=== PATIENT | male | born 1940 | race Caucasian/White ===

== ENCOUNTER 2017-10-12 21:04 | Emergency (ER) | payer OTHER ==
[2017-10-12 21:11] VITALS: BP 150/90
--- NOTE | 2017-10-12 21:27 | EDPHY ---
H & P Time Seen by Provider: 10/12/17 21:25 HPI/ROS: Chief complaint. Bit tongue and it will not stop bleeding HPI. 77-year-old male on Plavix and aspirin bit his tongue 2 hr ago. It will not stop bleeding. Continues to ooze. No difficulty swallowing or breathing. No other complaints. No chest pain shortness of breath abdominal pain. ROS Constitutional. no fever/chills, no weakness Eyes. no problems with vision ENT. Tongue bite with continued bleeding Cardiovascular. no chest pain Respiratory. no shortness of breath, no cough Abdominal. no abdominal pain, no nausea/vomiting, no diarrhea . no problems urinating MS. no calf pain/swelling, no neck/back pain, no joint pain Skin. no rash Lymph. no swollen glands Neuro. no headache, no dizziness, no difficulty walking or with speech Past Medical/Surgical History: Cardiac stents with coronary artery disease, prostatectomy Social History: , nonsmoker, no alcohol Smoking Status: Never smoked Physical Exam: General Appearance: Alert pleasant well-developed male mild distress vital signs are stay Eyes: Pupils equal and round no pallor or injection. ENT, bite to the tip of the tongue. Continue is oozing. No significant laceration that needs closure Respiratory: There are no retractions, lungs are clear to auscultation. Cardiovascular: Regular rate and rhythm. Gastrointestinal: Abdomen is soft and nontender, no masses, bowel sounds normal. Neurological: Awake and alert, sensory and motor exams grossly normal. Skin: Warm and dry, no rashes. Musculoskeletal: Neck is supple nontender. Extremities symmetrical, full range of motion. Psychiatric: Patient is oriented X 3, there is no agitation. Constitutional: Initial Vital Signs Temperature (C) 37.2 C 10/12/17 21:09 Heart Rate 88 10/12/17 21:09 Respiratory Rate 16 10/12/17 21:09 Blood Pressure 150/90 H 10/12/17 21:09 O2 Sat (%) 92 10/12/17 21:09 O2 Delivery Mode Room Air Allergies/Adverse Reactions: No Known Allergies Allergy (Verified 10/12/17 21:09) Home Medications: Medication Instructions Recorded Aspirin [Aspirin 81mg (*)] 81 mg PO DAILY 06/13/14 Clopidogrel Bisulfate [Clopidogrel] 75 mg PO DAILY 06/13/14 Metoprolol Tartrate [Lopressor 50 50 mg PO DAILY 06/13/14 mg (*)] Simvastatin [Zocor 40 mg] 40 mg PO DAILY 06/13/14 Medical Decision Making Procedures: 1% lidocaine with epinephrine is infiltrated to the tip of his tongue ED Course/Re-evaluation: Serial observations and no further bleeding Patient and I discussed treatment plan including criteria for return importance of follow-up and further evaluation. He expresses understanding and agreement Differential Diagnosis: Bleeding secondary to tongue bite with continued oozing. Bleeding now controlled. No evidence for foreign body Departure - Departure Disposition: Home, Routine, Self-Care Clinical Impression: Tongue laceration Qualifiers: Encounter type: initial encounter Qualified Code(s): S01.512A - Laceration without foreign body of oral cavity, initial encounter Condition: Good Instructions: Laceration Without Closure (ED) Additional Instructions: Continue regular medications. Return for worsening or further bleeding Referrals: Shaun Romero MD [Primary Care Provider] - As per Instructions
== END 2017-10-12 22:37 | disposition home or self-care (01) ==
DX: S01.512A Laceration without foreign body of oral cavity, initial encounter (principal); I25.10 Atherosclerotic heart disease of native coronary artery without angina pectoris; Z79.82 Long term (current) use of aspirin; Z95.5 Presence of coronary angioplasty implant and graft; X58.XXXA Exposure to other specified factors, initial encounter; Y99.8 Other external cause status